=== PATIENT | female | born 1940 | race Two or more races ===

== ENCOUNTER 2022-05-25 02:59 | Inpatient (IN) | payer MEDICAID ==
[~2022-05-25] VITALS: Ht 157.5 cm; Wt 56.7 kg
[2022-05-25] MEDS ORDERED: HYDROCODONE/APAP 5/325MG TABLET PO PRN (03:30)
[2022-05-25] MEDS ORDERED: MAGNESIUM HYDROXIDE 30 ML UDC PO PRN (03:30)
[2022-05-25] MEDS ORDERED: MORPHINE SULFATE INJ 2 MG/ML DISP.SYRIN IV PRN (03:30)
[2022-05-25] MEDS ORDERED: Z GUARD REMEDY 4 OZ OINT TP PRN (03:30)
[2022-05-25] MEDS ORDERED: MAG HYDROX/AL HYDROX/SIMETH 30 ML UDC PO PRN (03:30)
[2022-05-25] MEDS ORDERED: ONDANSETRON HCL/PF 4 MG/2 ML VIAL IVP PRN (03:30)
[2022-05-25] MEDS ORDERED: ACETAMINOPHEN 325 MG TABLET PO PRN (03:30)
--- NOTE | 2022-05-25 04:20 | NUR ---
MS/TELE/RN RECEIVED PATIENT FROM [facility] BY AMBULANCE AT AROUND 0310. PATIENT WAS AWAKE, ALERT, ORIENTED, MONGOLIAN SPEAKING ONLY. MADE PATIENT COMFORTABLE IN BED, HEART MONITOR APPLIED, ADMISSION DONE WITH JOSE GRACIA, TYPING BOOKKEEPER. PHYSICAL ASSESSMENT DONE, PHOTOS TAKEN ON BRUISES IN BOTH ARMS. TAUGHT THE USE OF CALL LIGHT, VERBALIZED UNDERSTANDING, PLACED IT AT BEDSIDE WITHIN REACH, PLAN OF CARE DISCUSSED, VERBALIZED UNDERSTANDING AND AGREEMENT TO THE PLAN, FALL PRECAUTIONS PER PROTOCOL IMPLEMENTED PATIENT IS UNABLE TO WALK, ENCOURAGED TO ASK ASSISTANCE FOR FALL PREVENTION. MD ORDERS CARRIED OUT, WILL MONITOR.
[2022-05-25 06:00] VITALS: BP 116/55
--- NOTE | 2022-05-25 06:27 | NUR ---
MS/TELE/RN PATIENT IS SLEEPING, EASILY AROUSABLE, NO SIGNS OF DISTRESS NOTED, CALL LIGHT IN REACH, ALL NEEDS ATTENDED AT THIS TIME, WILL CONTINUE TO MONITOR.
[2022-05-25 06:35] LABS: BASOPHILS % (AUTO) 0.3 % (0.0-2.0); EOSINOPHILS % (AUTO) 1.2 % (0.0-6.0); HEMATOCRIT 36 % (33-45); HEMOGLOBIN 11.9 g/dL (11.5-14.8); LYMPHOCYTES # (AUTO) 1.6 K/uL (0.8-4.8); LYMPHOCYTES % (AUTO) 24.8 % (20.0-44.0); MEAN CORPUSCULAR HGB CONC 33 g/dl (31.0-36.0); MEAN CORPUSCULAR VOLUME 86 fL (82-100); MONOCYTES # (AUTO) 0.8 K/uL (0.1-1.30); NEUTROPHILS % (AUTO) 61.7 % (43.0-81.0); PLATELET COUNT (AUTO) 163 K/uL (150-450); RED BLOOD CELL COUNT(AUTO) 4.18 MIL/uL (4.0-5.2); WHITE BLOOD COUNT (AUTO) 6.4 K/uL (4.3-11.0)
[2022-05-25] MEDS ORDERED: RIVA10TA PO (07:06)
[2022-05-25] MEDS ORDERED: ASPI-1420 PO (07:06)
[2022-05-25] MEDS ORDERED: EZET10TA32 PO (07:06)
[2022-05-25] MEDS ORDERED: FURO40TA5 PO (07:06)
[2022-05-25] MEDS ORDERED: ATOR80TA PO (07:06)
[2022-05-25] MEDS ORDERED: CARV6.252 PO (07:06)
[2022-05-25 07:15] LABS: ALANINE AMINOTRANSFERASE 28 U/L (12-78); ALBUMIN 2.9 g/dL (3.4-5.0); ALKALINE PHOSPHATASE 79 U/L (46-116); ASPARTATE AMINOTRANSFERASE 29 U/L (15-37); BILIRUBIN,TOTAL 1.6 mg/dL (0.2-1.0); CALCIUM, SERUM 8.8 mg/dL (8.5-10.1); CARBON DIOXIDE 27 mmol/L (21-32); CHLORIDE 106 mmol/L (98-107); CREATININE 1.6 mg/dL (0.6-1.3); GLUCOSE 82 mg/dL (74-106); POTASSIUM 4.5 mmol/L (3.5-5.1); SODIUM SERUM 139 mmol/L (136-145); TOTAL PROTEIN, SERUM 6.1 g/dL (6.4-8.2); UREA NITROGEN, BLOOD 36 mg/dL (7-18)
[2022-05-25 08:00] VITALS: BP 117/58
[2022-05-25] MEDS ORDERED: ASPIRIN 81 MG TAB.CHEW PO SCH (09:00)
[2022-05-25] MEDS: AMIODARONE HCL 200 MG TABLET PO SCH (09:00)
[2022-05-25] MEDS ORDERED: FUROSEMIDE 40 MG/4 ML VIAL IV SCH (09:00)
[2022-05-25] MEDS: CARVEDILOL 6.25 MG TABLET PO SCH ×2 (09:00→17:13)
[2022-05-25] MEDS: PANTOPRAZOLE 40 MG TABLET.DR PO SCH (09:22)
[2022-05-25 09:56] LABS: BASOPHILS % (AUTO) 0.5 % (0.0-2.0); EOSINOPHILS % (AUTO) 0.8 % (0.0-6.0); HEMATOCRIT 37 % (33-45); LYMPHOCYTES # (AUTO) 1.2 K/uL (0.8-4.8); LYMPHOCYTES % (AUTO) 17.6 % (20.0-44.0); MEAN CORPUSCULAR HGB CONC 33 g/dl (31.0-36.0); MEAN CORPUSCULAR VOLUME 87 fL (82-100); MONOCYTES # (AUTO) 0.8 K/uL (0.1-1.30); MONOCYTES % (AUTO) 11.1 % (2.0-12.0); NEUTROPHILS # (AUTO) 4.8 K/uL (1.8-8.9); PLATELET COUNT (AUTO) 164 K/uL (150-450); RED BLOOD CELL COUNT(AUTO) 4.24 MIL/uL (4.0-5.2); WHITE BLOOD COUNT (AUTO) 6.8 K/uL (4.3-11.0)
[2022-05-25 10:24] LABS: ALANINE AMINOTRANSFERASE 30 U/L (12-78); ALKALINE PHOSPHATASE 81 U/L (46-116); ASPARTATE AMINOTRANSFERASE 32 U/L (15-37); BILIRUBIN,TOTAL 1.8 mg/dL (0.2-1.0); CALCIUM, SERUM 8.7 mg/dL (8.5-10.1); CARBON DIOXIDE 29 mmol/L (21-32); CHLORIDE 104 mmol/L (98-107); CREATININE 1.6 mg/dL (0.6-1.3); GLUCOSE 133 mg/dL (74-106); MAGNESIUM 2.9 mg/dL (1.8-2.4); PHOSPHORUS 3.8 mg/dL (2.5-4.9); POTASSIUM 5.4 mmol/L (3.5-5.1); SODIUM SERUM 139 mmol/L (136-145); TOTAL PROTEIN, SERUM 6.3 g/dL (6.4-8.2); UREA NITROGEN, BLOOD 36 mg/dL (7-18)
[2022-05-25] MEDS ORDERED: SODIUM POLYSTYRENE SULFONATE 15 G/60 ML BOTTLE PO ONE (13:00)
[2022-05-25 16:00] VITALS: BP 136/72
--- NOTE | 2022-05-25 16:06 | NUR ---
GIVEN KAYEXALATE FOR ELEVATED POTASSIUM,HAVING HAD SEVERAL STOOLS NOW.CHUCK. MED WELL.
[2022-05-25] MEDS: RIVAROXABAN 15 MG TABLET PO SCH (17:16)
[2022-05-25] MEDS: FUROSEMIDE 40 MG/4 ML VIAL IV SCH ×2 (18:16→21:34)
--- NOTE | 2022-05-25 18:51 | NUR ---
ethel first dose of lasix per dr. jorge for chest x-ray results.
--- NOTE | 2022-05-25 19:48 | NUR ---
RN OPENING NOTE PATIENT AWAKE IN BED W/ SON AT BEDSIDE. A/OX4. NO S/S OF DISTRESS, BREATHING ON ROOM AIR W/O DIFFICULTY. RAC #20 HL INTACT AND PATENT. TELE MONITOR REVEALS SR 90. SAFETY MEASURES IN PLACE: BED LOCKED, AT LOWEST POSITION, RAILS UP X3, CALL PARRISH WITHIN REACH. WILL CONTINUE TO MONITOR PATIENT.
[2022-05-25 20:00] VITALS: BP 107/59
[2022-05-25] MEDS: ATORVASTATIN 40 MG TABLET PO SCH (21:33)
[2022-05-25] MEDS: EZETIMIBE 10 MG TABLET PO SCH (21:33)
[2022-05-26] VITALS: BP 111/64
[2022-05-26] MEDS: FUROSEMIDE 40 MG/4 ML VIAL IV SCH (02:05)
[2022-05-26] MEDS: PANTOPRAZOLE 40 MG TABLET.DR PO SCH (06:37)
[2022-05-26 06:59] LABS: BASOPHILS % (AUTO) 0.2 % (0.0-2.0); HEMATOCRIT 37 % (33-45); HEMOGLOBIN 11.8 g/dL (11.5-14.8); LYMPHOCYTES # (AUTO) 1.5 K/uL (0.8-4.8); LYMPHOCYTES % (AUTO) 19.9 % (20.0-44.0); MEAN CORPUSCULAR HGB CONC 33 g/dl (31.0-36.0); MEAN CORPUSCULAR VOLUME 87 fL (82-100); MONOCYTES # (AUTO) 0.9 K/uL (0.1-1.30); NEUTROPHILS # (AUTO) 4.8 K/uL (1.8-8.9); NEUTROPHILS % (AUTO) 65.9 % (43.0-81.0); PLATELET COUNT (AUTO) 155 K/uL (150-450); RED BLOOD CELL COUNT(AUTO) 4.19 MIL/uL (4.0-5.2); WHITE BLOOD COUNT (AUTO) 7.3 K/uL (4.3-11.0)
--- NOTE | 2022-05-26 07:34 | NUR ---
RN CLOSING NOTE PATIENT AWAKE IN BED. A/OX4. NO S/S OF DISTRESS; BREATHING ON RM AIR W/O DIFFICULTY. RAC #20 HL INTACT AND PATENT. TELE MONITOR REVEALS 98 AFIB W/ V-PACING. BED LOCKED, AT LOWEST POSITION, RAILS UP X2, CALL PARRISH WITHIN REACH. REPORT GIVEN TO AND ACKNOWLEDGED BY [place] CHANDRA THAIS.
[2022-05-26 07:37] LABS: CHOLESTEROL 103 mg/dL (<200); HDL CHOLESTEROL 50 mg/dL (40-60); LDL 48 mg/dL (0-99); THYROID STIMULATING HORMONE 24.841 uIU/mL (0.358-3.74); TRIGLYCERIDES 54 mg/dL (30-150)
[2022-05-26 07:40] LABS: CALCIUM, SERUM 8.7 mg/dL (8.5-10.1); CARBON DIOXIDE 27 mmol/L (21-32); CHLORIDE 104 mmol/L (98-107); CREATININE 1.8 mg/dL (0.6-1.3); GLUCOSE 103 mg/dL (74-106); MAGNESIUM 2.7 mg/dL (1.8-2.4); PHOSPHORUS 4.1 mg/dL (2.5-4.9); POTASSIUM 3.7 mmol/L (3.5-5.1); SODIUM SERUM 141 mmol/L (136-145); UREA NITROGEN, BLOOD 34 mg/dL (7-18)
[2022-05-26] MEDS: AMIODARONE HCL 200 MG TABLET PO SCH (09:10)
[2022-05-26] MEDS: CARVEDILOL 6.25 MG TABLET PO SCH ×2 (09:10→18:30)
[2022-05-26] MEDS: LEVOTHYROXINE SODIUM 100 MCG TABLET PO SCH (13:51)
[2022-05-26] MEDS: RIVAROXABAN 15 MG TABLET PO SCH (18:34)
--- NOTE | 2022-05-26 19:39 | NUR ---
RN OPENING NOTES RECEIVED PT IN BED, ASLEEP, AWAKENS TO VERBAL STIMULI. AOx4, ABLE TO MAKE NEEDS KNOWN AND ROMANSH SPEAKING. ON RA AND TOLERATING WELL. NO SOB NOTED. NO S/SX OF RESPIRATORY DISTRESS NOTED. IV ACCESS IN RAC #20. IV IS INTACT, PATENT, AND FLUSHING WELL. SAFETY PRECAUTIONS IN PLACE: BED IN LOWEST, LOCKED POSITION, SIDERAILS UPx2, AND BRAKES ON. TABLE AND CALL LIGHT WITHIN REACH. WILL CONTINUE TO MONITOR.
[2022-05-26 20:22] VITALS: BP 96/53
[2022-05-26] MEDS: ATORVASTATIN 40 MG TABLET PO SCH (22:28)
[2022-05-26] MEDS: EZETIMIBE 10 MG TABLET PO SCH (22:28)
--- NOTE | 2022-05-27 06:53 | NUR ---
RN CLOSING NOTES PT IN BED, AWAKE, ON PHONE. AOx4, ABLE TO MAKE NEEDS KNOWN AND FIJIAN SPEAKING. ON RA AND TOLERATING WELL. NO SOB NOTED. NO S/SX OF RESPIRATORY DISTRESS NOTED. IV ACCESS IN RAC #20. IV IS INTACT, PATENT, AND FLUSHING WELL. ALL ORDERS CARRIED OUT. ALL NEEDS MET. PT KEPT CLEAN AND DRY. SAFETY PRECAUTIONS IN PLACE: BED IN LOWEST, LOCKED POSITION, SIDERAILS UPx2, AND BRAKES ON. TABLE AND CALL LIGHT WITHIN REACH. WILL ENDORSE TO ONCOMING SHIFT FOR THAIS.
--- NOTE | 2022-05-27 07:00 | NUR ---
MS RN OPENING NOTES RECEIVED PT IN BED, ASLEEP, AWAKENS TO VERBAL STIMULI. AOx4, ABLE TO MAKE NEEDS KNOWN AND IRISH SPEAKING. ON RA AND TOLERATING WELL. NO SOB NOTED. NO S/SX OF RESPIRATORY DISTRESS NOTED. IV ACCESS IN RAC #20. IV IS INTACT, PATENT, AND FLUSHING WELL. SAFETY PRECAUTIONS IN PLACE: BED IN LOWEST, LOCKED POSITION, SIDERAILS UPx2, AND BRAKES ON. TABLE AND CALL LIGHT WITHIN REACH. WILL CONTINUE TO MONITOR.
[2022-05-27 07:02] LABS: BASOPHILS % (AUTO) 0.3 % (0.0-2.0); EOSINOPHILS % (AUTO) 1.9 % (0.0-6.0); HEMATOCRIT 36 % (33-45); HEMOGLOBIN 11.6 g/dL (11.5-14.8); LYMPHOCYTES # (AUTO) 1.3 K/uL (0.8-4.8); LYMPHOCYTES % (AUTO) 17.7 % (20.0-44.0); MEAN CORPUSCULAR HGB CONC 32 g/dl (31.0-36.0); MEAN CORPUSCULAR VOLUME 86 fL (82-100); MONOCYTES # (AUTO) 0.8 K/uL (0.1-1.30); MONOCYTES % (AUTO) 10.7 % (2.0-12.0); NEUTROPHILS # (AUTO) 5.2 K/uL (1.8-8.9); NEUTROPHILS % (AUTO) 69.4 % (43.0-81.0); PLATELET COUNT (AUTO) 172 K/uL (150-450); RED BLOOD CELL COUNT(AUTO) 4.16 MIL/uL (4.0-5.2); WHITE BLOOD COUNT (AUTO) 7.4 K/uL (4.3-11.0)
[2022-05-27 07:41] LABS: ALANINE AMINOTRANSFERASE 24 U/L (12-78); ALKALINE PHOSPHATASE 82 U/L (46-116); ASPARTATE AMINOTRANSFERASE 26 U/L (15-37); BILIRUBIN,TOTAL 1.9 mg/dL (0.2-1.0); CALCIUM, SERUM 8.7 mg/dL (8.5-10.1); CARBON DIOXIDE 31 mmol/L (21-32); CHLORIDE 104 mmol/L (98-107); CREATININE 1.7 mg/dL (0.6-1.3); GLUCOSE 95 mg/dL (74-106); MAGNESIUM 2.7 mg/dL (1.8-2.4); POTASSIUM 3.4 mmol/L (3.5-5.1); SODIUM SERUM 142 mmol/L (136-145); TOTAL PROTEIN, SERUM 6.2 g/dL (6.4-8.2); UREA NITROGEN, BLOOD 33 mg/dL (7-18)
[2022-05-27] MEDS: PANTOPRAZOLE 40 MG TABLET.DR PO SCH (07:42)
[2022-05-27] MEDS: LEVOTHYROXINE SODIUM 100 MCG TABLET PO SCH (07:42)
[2022-05-27 08:00] VITALS: BP 109/56
[2022-05-27] MEDS: CARVEDILOL 6.25 MG TABLET PO SCH ×2 (09:00→17:00)
[2022-05-27] MEDS: AMIODARONE HCL 200 MG TABLET PO SCH (09:16)
--- NOTE | 2022-05-27 09:17 | NUR ---
RN NOTES: COREG NOT GIVEN DUE TO LOW BP 109/56
[2022-05-27] MEDS: FUROSEMIDE 100 MG/10 ML VIAL IV SCH ×3 (09:30→17:30)
--- NOTE | 2022-05-27 10:30 | NUR ---
rn notes: iv lasix not given due to low bp 90/46
[2022-05-27] MEDS ORDERED: POTASSIUM CHLORIDE 10 MEQ TABLET.SA PO SCH (13:00)
--- NOTE | 2022-05-27 13:30 | NUR ---
RN NOTESS: LASIX IV NOT GIVEN BP 101/60. SPOKE TO DR Rincon WHO ORDER TO HOLD LASIX AND COREG FOR NOW,IF BP STILL LOW DON'T GOVE NEXT DOSE OF LASIX.
[2022-05-27] MEDS ORDERED: POTASSIUM CL. PREMIX PERIPHER. 50 ML IV SCH (15:30)
--- NOTE | 2022-05-27 15:30 | NUR ---
RN NOTES; SPOKE TO PHARMACY TOLD THEM UNABLE TO GET KDUR FOR OMNICEL WHO SPOKE TO MD WITH ORDER OF IV POTASSIUM 10MEQ X 1.
[2022-05-27 16:00] VITALS: BP 100/51
[2022-05-27] MEDS: RIVAROXABAN 15 MG TABLET PO SCH (16:22)
--- NOTE | 2022-05-27 17:42 | NUR ---
RN NOTES: BP 100/[address] NISA MIRANDA AND COIREG WAS HELD NOT GIVEN
--- NOTE | 2022-05-27 19:26 | NUR ---
RN CLOSING NOTES PT IN BED, AWAKE, ON PHONE. AOx4, ABLE TO MAKE NEEDS KNOWN AND [place]I SPEAKING. ON RA AND TOLERATING WELL. NO SOB NOTED. NO S/SX OF RESPIRATORY DISTRESS NOTED. IV ACCESS IN RAC #20. IV IS INTACT, PATENT, AND FLUSHING WELL. ALL ORDERS CARRIED OUT. ALL NEEDS MET. PT KEPT CLEAN AND DRY. SAFETY PRECAUTIONS IN PLACE: BED IN LOWEST, LOCKED POSITION, SIDERAILS UPx2, AND BRAKES ON. TABLE AND CALL LIGHT WITHIN REACH. WILL ENDORSE TO ONCOMING SHIFT FOR THAIS.
--- NOTE | 2022-05-27 19:47 | NUR ---
RN OPENING NOTE PATIENT AWAKE IN BED. A/OX4. NO S/S OF DISTRESS, BREATHING W/O DIFFICULTY ON RM AIR. RAC #20SL IN TACT AND PATENT. SAFETY MEASURES IN PLACE: BED LOCKED, AT LOWEST POSITION, RAILS UP X3, CALL PARRISH WITHIN REACH. WILL CONTINUE TO MONITOR PATIENT.
[2022-05-27 20:00] VITALS: BP 87/51
[2022-05-27] MEDS: ATORVASTATIN 40 MG TABLET PO SCH (21:18)
[2022-05-27] MEDS: EZETIMIBE 10 MG TABLET PO SCH (21:18)
[2022-05-28] VITALS: BP 87/51
[2022-05-28] MEDS: ZOLPIDEM TARTRATE 5 MG TABLET PO PRN ×2 (00:14→21:17)
--- NOTE | 2022-05-28 06:55 | NUR ---
RN CLOSING NOTE PATIENT AWAKE IN BED. A/OX4. NO S/S OF DISTRESS, BREATHING W/O DIFFICULTY ON RM AIR. RAC #22 SL INTACT AND PATENT. SAFETY MEASURES IN PLACE: BED LOCKED, IN LOWEST POSITION, RAILS UP X2, CALL PARRISH WITHIN REACH. REPORT GIVEN TO AND ACKNOWLEDGED BY KYLE RNKAJAL, FOR THAIS.
[2022-05-28 07:15] LABS: BASOPHILS % (AUTO) 0.2 % (0.0-2.0); HEMATOCRIT 35 % (33-45); HEMOGLOBIN 11.6 g/dL (11.5-14.8); LYMPHOCYTES # (AUTO) 1.8 K/uL (0.8-4.8); LYMPHOCYTES % (AUTO) 25.2 % (20.0-44.0); MEAN CORPUSCULAR HGB CONC 33 g/dl (31.0-36.0); MEAN CORPUSCULAR VOLUME 85 fL (82-100); MONOCYTES # (AUTO) 0.8 K/uL (0.1-1.30); MONOCYTES % (AUTO) 11.5 % (2.0-12.0); NEUTROPHILS # (AUTO) 4.3 K/uL (1.8-8.9); NEUTROPHILS % (AUTO) 61.1 % (43.0-81.0); PLATELET COUNT (AUTO) 177 K/uL (150-450); WHITE BLOOD COUNT (AUTO) 7.1 K/uL (4.3-11.0)
[2022-05-28 07:57] LABS: ALANINE AMINOTRANSFERASE 21 U/L (12-78); ALKALINE PHOSPHATASE 81 U/L (46-116); ASPARTATE AMINOTRANSFERASE 28 U/L (15-37); BILIRUBIN,TOTAL 1.7 mg/dL (0.2-1.0); CALCIUM, SERUM 8.6 mg/dL (8.5-10.1); CARBON DIOXIDE 29 mmol/L (21-32); CHLORIDE 103 mmol/L (98-107); CREATININE 1.6 mg/dL (0.6-1.3); GLUCOSE 104 mg/dL (74-106); MAGNESIUM 2.9 mg/dL (1.8-2.4); PHOSPHORUS 3.8 mg/dL (2.5-4.9); POTASSIUM 3.9 mmol/L (3.5-5.1); SODIUM SERUM 141 mmol/L (136-145); TOTAL PROTEIN, SERUM 6.3 g/dL (6.4-8.2); UREA NITROGEN, BLOOD 31 mg/dL (7-18)
[2022-05-28 08:00] VITALS: BP 105/69
[2022-05-28] MEDS: AMIODARONE HCL 200 MG TABLET PO SCH (08:21)
[2022-05-28] MEDS: LEVOTHYROXINE SODIUM 100 MCG TABLET PO SCH (08:21)
[2022-05-28] MEDS: PANTOPRAZOLE 40 MG TABLET.DR PO SCH (08:21)
[2022-05-28] MEDS: CARVEDILOL 6.25 MG TABLET PO SCH ×2 (08:21→16:22)
[2022-05-28] MEDS ORDERED: BUMETANIDE INJ 8 MG in IV NS 0.9% 48 ML IV ONE (09:00)
[2022-05-28] MEDS: POTASSIUM CHLORIDE 20 MEQ TAB.PRT.SR PO SCH ×3 (09:26→11:55)
--- NOTE | 2022-05-28 09:58 | NUR ---
RN OPENING NOTE PATIENT AWAKE IN BED. A/OX4. NO S/S OF DISTRESS, BREATHING W/O DIFFICULTY ON RM AIR. RAC #20SL IN TACT AND PATENT. SAFETY MEASURES IN PLACE: BED LOCKED, AT LOWEST POSITION, RAILS UP X3, CALL PARRISH WITHIN REACH.
[2022-05-28 16:00] VITALS: BP 94/69
[2022-05-28] MEDS: RIVAROXABAN 15 MG TABLET PO SCH (16:27)
--- NOTE | 2022-05-28 18:43 | NUR ---
RN CLOSING NOTE PATIENT AWAKE IN BED. A/OX4. NO S/S OF DISTRESS, BREATHING W/O DIFFICULTY ON RM AIR. RAC #22 SL INTACT AND PATENT. SAFETY MEASURES IN PLACE: BED LOCKED, IN LOWEST POSITION, RAILS UP X2, CALL PARRISH WITHIN REACH. WILL ENDORSE TO NIGHT NURSE FOR THAIS.
--- NOTE | 2022-05-28 19:34 | NUR ---
RN OPENING NOTE PATIENT AWAKE IN BED W/ FAMILY AT BEDSIDE. A/OX4. NO S/S OF DISTRESS, BREATHING W/O DIFFICULTY ON RM AIR. RAC#20 SL INTACT AND PATENT. SAFETY MEASURES IN PLACE: BED LOCKED, AT LOWEST POSITION, RAILS UP X2, CALL PARRISH WITHIN REACH. WILL CONTINUE TO MONITOR PATIENT.
[2022-05-28 20:00] VITALS: BP 99/61
[2022-05-28] MEDS: EZETIMIBE 10 MG TABLET PO SCH (21:17)
[2022-05-28] MEDS: ATORVASTATIN 40 MG TABLET PO SCH (21:17)
[2022-05-29] VITALS: BP_SYST 138; BP_SYST 99; BP_DIAS 58; BP_DIAS 61
--- NOTE | 2022-05-29 00:55 | NUR ---
RN NOTE PATIENT WAS FOUND ON FLOOR IN BATHROOM. NO APPARENT INJURY. PATIENT WAS ASKED IF ANY PAIN - PATIENT DENIED PAIN ANYWHERE. PATIENT STATED SHE HAD LANDED ON HER RIGHT SIDE WHICH IS HOW SHE WAS FOUND. PATIENT EXHIBITED FULL RANGE OF MOTION AND USE OF RIGHT HAND, ARM, AND LEG. NO SWELLING, BRUISING OR BLEEDING PRESENT. ON-CALL MD, ADEOLA COFFMAN, NOTIFIED. NO ORDERS GIVEN AT THIS TIME EXCEPT TO MONITOR PATIENT. EMERGENCY CONTACT LISTED IN CHART (BHAVESH CASTANEDA, SON) WAS ALSO NOTIFIED. ALL QUESTIONS ANSWERED. PATIENT IS CURRENTLY STABLE; WILL CONTINUE TO MONITOR PATIENT.
--- NOTE | 2022-05-29 04:58 | NUR ---
RN NOTE SPOKE W/ PATIENT'S SON, BHAVESH, WELL PATIENT'S GRANDDAUGHTER BAMBI. BAMBI STATED THAT SHE HAS HAD TO AID THE FAMILY IN HELPING CARE FOR HER GRANDMOTHER (THE PATIENT) OVERSEEING MONITORING MEDICATIONS, MEDICAL APPOINTMENTS, ETC. APPARENTLY PATIENT HAS A LONG HISTORY OF BEING IN AND OUT OF HOSPITALS DUE TO SAME ISSUE WHAT BRINGS HER HERE TO [facility] PRESENTLY. BAMBI STATED PATIENT IS NON-COMPLIANT W/ MEDICATIONS AT HOME; PATIENT HAS A PCP BUT DOES NOT FOLLOW UP MUCH SHE SHOULD. FAR FOLLOW-UP CARE POST-D/C: BAMBI STATED PATIENT IS [place] LE[place], AND THE INSURANCE THAT THE PATIENT DOES HAVE DOES NOT ALLOW FOR ACCESS TO A SNF. IRIS STATED FAMILY HAS TRIED THIS ROUTE BEFORE UNSUCCESSFULLY. PATIENT HERSELF HAS STATED DURING THIS RN'S SHIFT THAT SHE DOES NOT NEED HELP ALBEIT SHE IS 81 YEARS OLD, LIVES ALONE, AND HAS NUMEROUS HEALTH ISSUES. THE PATIENT MAY NEED TO HAVE HER HEALTH NEEDS POST-D/C REASSESSED TO LOOK FOR PROPER CARE AND ACCESS TO RESOURCES OUTSIDE THE HOSPITAL ENVIRONMENT.
--- NOTE | 2022-05-29 06:17 | NUR ---
RN CLOSING NOTE PATIENT ASLEEP IN BED. A/OX4. NO S/S OF DISTRESS; BREATHING W/O DIFFICULTY ON ROOM AIR. RAC #20 SL INTACT AND PATENT. SAFETY MEASURES IN PLACE: BED LOCKED, RAILS UP X2, CALL PARRISH WITHIN REACH. WILL ENDORSE TO NEXT SHIFT FOR THAIS.
[2022-05-29] MEDS: PANTOPRAZOLE 40 MG TABLET.DR PO SCH (06:32)
[2022-05-29] MEDS: LEVOTHYROXINE SODIUM 100 MCG TABLET PO SCH (06:32)
[2022-05-29 06:37] LABS: BASOPHILS % (AUTO) 0.3 % (0.0-2.0); EOSINOPHILS % (AUTO) 2.4 % (0.0-6.0); HEMATOCRIT 34 % (33-45); HEMOGLOBIN 11.4 g/dL (11.5-14.8); LYMPHOCYTES # (AUTO) 1.4 K/uL (0.8-4.8); LYMPHOCYTES % (AUTO) 23.7 % (20.0-44.0); MEAN CORPUSCULAR HGB CONC 34 g/dl (31.0-36.0); MEAN CORPUSCULAR VOLUME 85 fL (82-100); MONOCYTES # (AUTO) 0.7 K/uL (0.1-1.30); NEUTROPHILS # (AUTO) 3.8 K/uL (1.8-8.9); NEUTROPHILS % (AUTO) 61.6 % (43.0-81.0); PLATELET COUNT (AUTO) 171 K/uL (150-450); RED BLOOD CELL COUNT(AUTO) 3.96 MIL/uL (4.0-5.2); WHITE BLOOD COUNT (AUTO) 6.1 K/uL (4.3-11.0)
[2022-05-29 08:00] VITALS: BP 112/69
--- NOTE | 2022-05-29 08:02 | NUR ---
RN OPENING NOTE PATIENT AWAKE IN BED RESTING, A/O X 4. NO S/S OF PAIN NOTED AT THIS TIME. ON ROOM AIR, NO DISTRESS OR SHORTNESS OF BREATH NOTED. IV ACCESS, RAC #20G, INTACT PATENT AND FLUSHING WELL. FALL AND SAFETY MEASURES IN PLACE, BED ALARM ON, BED IN LOW AND LOCK POSITION, CALL LIGHT AND TABLE WITHIN EASY REACH, SIDE RAILS UP X2. WILL CONTINUE TO MONITOR.
[2022-05-29] MEDS: AMIODARONE HCL 200 MG TABLET PO SCH (08:35)
[2022-05-29 08:36] VITALS: BP 112/69
[2022-05-29] MEDS: CARVEDILOL 6.25 MG TABLET PO SCH (08:36)
[2022-05-29 08:59] LABS: ALANINE AMINOTRANSFERASE 22 U/L (12-78); ALBUMIN 2.9 g/dL (3.4-5.0); ALKALINE PHOSPHATASE 82 U/L (46-116); ASPARTATE AMINOTRANSFERASE 23 U/L (15-37); BILIRUBIN,TOTAL 1.7 mg/dL (0.2-1.0); CALCIUM, SERUM 8.5 mg/dL (8.5-10.1); CARBON DIOXIDE 29 mmol/L (21-32); CHLORIDE 103 mmol/L (98-107); CREATININE 1.6 mg/dL (0.6-1.3); GLUCOSE 88 mg/dL (74-106); MAGNESIUM 2.6 mg/dL (1.8-2.4); PHOSPHORUS 3.6 mg/dL (2.5-4.9); SODIUM SERUM 141 mmol/L (136-145); UREA NITROGEN, BLOOD 30 mg/dL (7-18)
[2022-05-29] MEDS ORDERED: SPIRONOLACTONE 25 MG TABLET PO SCH (09:00)
[2022-05-29] MEDS ORDERED: RIVA15TA PO (09:36)
[2022-05-29] MEDS ORDERED: CARV6.252 PO (09:36)
[2022-05-29] MEDS ORDERED: ATOR40TA PO (09:36)
[2022-05-29] MEDS ORDERED: AMIO200T7 PO (09:36)
[2022-05-29] MEDS ORDERED: SPIR25TA6 PO (09:36)
[2022-05-29] MEDS ORDERED: LEVO100T PO (09:36)
--- NOTE | 2022-05-29 12:27 | NUR ---
SS Note: Pt. Is an 81-year-old female who demonstrates adequate insight to the reason for hospitalization. Pt. is Georgian speaking, Nurse Maria Esther juarez. Per EMR, pt. was received from [facility] by ambulance. Pt. was oriented x3, alert, and cooperative. During interview, pt. was capable of following directions and appeared unkempt. Pt.s speech was at a normal rate and pt.s mood was elevated. Pt. reported no hx of mental health, substance abuse, suicidal ideation, or homicidal ideation. Pt. denies auditory hallucinations, visual hallucinations, paranoia, or delusions. SW explored pt.s living situation. Per pt., she lives with her granddaughter [[id number] [place] [address]]. Per nurses note, son [Han] stated that pt. lives alone and has a hx of being in and out of hospitals. Pt. is non-compliant with medications at home and does not follow-up with PCP. Pt. stated that she wants to go home and can care for self. ANIBAL spoke with Kosher Inspector, and pt. will be going home with home health. Plan: Pt. will return home with home health.
--- NOTE | 2022-05-29 14:40 | NUR ---
ROADWAY TECHNICIAN NOTE PATIENT DISCHARGE IN STABLE MEDICAL CONDITION. A/O X4. V/S TAKEN, STABLE AND RECORDED. NO IV ACCESS. SKIN ASSESSMENT DONE, NO OPEN WOUNDS. NAME ARM BAND REMOVED. ALL BELONGINGS CHECKED AND SIGNED. HEALTH TEACHING AND DISCHARGE INSTRUCTIONS GIVEN AND VERBALIZED UNDERSTANDING. PATIENT LEFT UNIT VIA WHEELCHAIR WITH NO SIGNS OF DISTRESS, ACCOMPANIED BY RN TO THE LOBBY. CHARGE NURSE AWARE OF DISCHARGED.
== END 2022-05-29 18:15 | disposition home health service (06) | DRG 194 ==
LOC: TELE 02:59 → MED 05-26 13:26
PROVIDERS: ATTEND Internal Medicine
DX: I13.0 Hypertensive heart and chronic kidney disease with heart failure and stage 1 through stage 4 chronic kidney disease, or unspecified chronic kidney disease (principal); E44.1 Mild protein-calorie malnutrition; Z79.01 Long term (current) use of anticoagulants; Z95.1 Presence of aortocoronary bypass graft; N18.30 Chronic kidney disease, stage 3 unspecified; I48.0 Paroxysmal atrial fibrillation; I50.33 Acute on chronic diastolic (congestive) heart failure; I25.10 Atherosclerotic heart disease of native coronary artery without angina pectoris; E87.5 Hyperkalemia; Z88.6 Allergy status to analgesic agent; Z95.810 Presence of automatic (implantable) cardiac defibrillator
CPT/HCPCS: 36415; 71045-TC; 76705-TC; 76770-TC; 80048-TC; 80053-TC; 80061-TC; 83735-TC; 84100-TC; 84443-TC; 84484-TC; 85025-TC; 87081-TC; 93307-TC; 97116-TC; 97530-TC; G0378; J1940; J3480; J3490; J7050